=== PATIENT | male | born 1955 | race Caucasian/White ===

== ENCOUNTER → 2016-10-18 | Outpatient (CLI) | payer BC ==
[~2016-10-18] MED LIST: ASPIRIN 81M81 MG/TA2 PO; CHERRY TART; EPA FISH OIL1000 MG PO; LOPRESSOR 550 MG/TAB PO; METAMUCIL3.4 GM/DOS PO; MULTIPLE VITAMI1 CAP PO; NITROQUICK0.4 MG SL; NORCO 325 MG-7.1 TAB PO; PRILOSEC 20MG20 MG PO; WELLBUTRIN XL300 M1 PO
== END ==
LOC: COL.RAD 10:11
DX: D44.0 Neoplasm of uncertain behavior of thyroid gland (principal)

== ENCOUNTER → 2017-02-02 | Outpatient (CLI) | payer BC | LOC: COL.RAD 11:15 | DX: E04.1 Nontoxic single thyroid nodule (principal) ==

== ENCOUNTER → 2018-01-23 | Outpatient (CLI) | payer BC | LOC: COL.RAD 10:54 | DX: E04.1 Nontoxic single thyroid nodule (principal) ==

== ENCOUNTER → 2024-08-21 | Outpatient (CLI) | payer MEDICARE, BC | LOC: COL.RAD 09:55 | DX: K76.0 Fatty (change of) liver, not elsewhere classified (principal); R16.0 Hepatomegaly, not elsewhere classified; F17.210 Nicotine dependence, cigarettes, uncomplicated ==